=== PATIENT | female | born 1975 | race Caucasian/White ===

== ENCOUNTER 2018-03-06 11:03 | Day surgery (SDC) | payer OTHER ==
[2018-03-05 12:59] VITALS: BMI 23.9
[2018-03-06] MEDS ORDERED: PROPOFOL 20 ML ONE (13:47)
[2018-03-06] MEDS ORDERED: SUCCINYLCHOLINE CHLORIDE 200 MG/10 ML VIAL ONE (13:47)
[2018-03-06] MEDS ORDERED: MIDAZOLAM HCL 2 MG/2 ML SINGLE DOSE VIAL ONE (13:48)
[2018-03-06] MEDS ORDERED: DEXAMETHASONE SOD PHOSPHATE 4 MG/1 ML VIAL ONE (13:52)
[2018-03-06] MEDS ORDERED: LIDOCAINE HCL/PF 2% SDV 5ML VIAL ONE (13:52)
--- NOTE | 2018-03-06 14:49 | OP ---
Operative Note - Note: Operative Date: 03/06/18 Pre-Operative Diagnosis: rt. renal stone, rt. renal colick Operation: cysto, rt. retro rt. ureteroscopy rt. laser lithotripsy rt. jj stent Post-Operative Diagnosis: Same as Pre-op Anesthesia: General Specimens Removed: gravel and urine Estimated Blood Loss (mls): 0 Drains & Tubes with Location: 22cm 6f rt. jj stent Drains, Volume Out (mls): 0 Blood Volume Replaced (mls): 0 Fluid Volume Replaced (mls): 0 Operative Report Dictated: Yes
[2018-03-06] MEDS ORDERED: oxyCODONE HCL 5 MG TABLET PO PRN (15:51)
[2018-03-06] MEDS ORDERED: oxyCODONE HCL 5 MG TABLET ONE (17:24)
[2018-03-06] MEDS: oxyCODONE HCL 5 MG TABLET PO PRN (17:32)
[2018-03-06] MEDS ORDERED: ONDANSETRON 4 MG/2 ML VIAL ONE (18:27)
[2018-03-06] MEDS ORDERED: ONDANSETRON 4 MG/2 ML VIAL IVPUSH ONE (18:36)
[2018-03-06] MEDS: ACETAMINOPHEN 325 MG TABLET (FP) PO PRN (20:38)
[2018-03-06] MEDS: ONDANSETRON 4 MG/2 ML VIAL IVPUSH PRN (20:38)
[2018-03-07] MEDS: morphine SULFATE 4 MG/ML VIAL IVPUSH PRN ×3 (00:05→11:41)
[2018-03-07] MEDS: LACTATED RINGERS SOLUTION 1,000 ML IV SCH ×3 (00:13→22:41)
[2018-03-07] MEDS: ONDANSETRON 4 MG/2 ML VIAL IVPUSH PRN (02:17)
--- NOTE | 2018-03-07 06:53 | HP ---
DATE OF ADMISSION: 03/06/2018 HISTORY OF PRESENT ILLNESS: Patient is a 43-year-old female with history of right renal colic and right flank pain. Patient has also had long history of interstitial cystitis. She has been on Elmiron for several months. She constantly complains of pelvic pain, frequency, urgency, dysuria, and dyspareunia. A CT scan of her abdomen revealed a 7-mm right renal pelvic stone. She has undergone breast reduction surgery, right inguinal hernia repair, a laparotomy and a left inguinal hernia repair. The patient is . ALLERGIES: She denies any allergies. SOCIAL HISTORY: She denies any ethanolism, or tobacco. IMAGING: As stated earlier her CT scan results revealed a non-obstructing right 7-mm renal pelvic pain. There were numerous pelvic calcifications likely phleboliths. Non-obstructing distal ureteral calculi cannot be excluded. There was a large irregular uterus likely secondary to fibroids, and body lower segment appears particularly large. There is a left adnexal low-density cyst measuring 2.19 cm PLAN: The patient is admitted to undergo a cystoscopy, right ureteroscopy, right laser lithotripsy and placement of a right JJ stent. This was explained in detail to patient and she agrees. Janice [id number]
[2018-03-07] MEDS ORDERED: morphine SULFATE 4 MG/ML VIAL IVPUSH PRN (12:17)
[2018-03-07] MEDS ORDERED: ONDANSETRON 4 MG/2 ML VIAL IVPUSH PRN (12:17)
[2018-03-07] MEDS: oxyCODONE HCL 5 MG TABLET PO PRN (22:46)
[2018-03-07] MEDS: ACETAMINOPHEN 325 MG TABLET (FP) PO PRN (22:47)
[2018-03-08] MEDS: oxyCODONE HCL 5 MG TABLET PO PRN (06:55)
--- NOTE | 2018-03-08 12:45 | PN ---
Progress Note (short form) - Note Progress Note: UROLOGY NOTE. PT. IS S/P RULL WITH JJ STENT, AFEBRILE, NO CVA-T, ABD.-SOFT,N/ TURINE-CLEAR. PLAN -RENAL/PELVIC SONO IN AM.
[2018-03-08 13:24] VITALS: BP 119/71; PULSE 75; TEMP 98.7
--- NOTE | 2018-03-11 10:39 | OP ---
DATE OF OPERATION: 03/06/2018 SURGEON: Pool Martinez MD PREOPERATIVE DIAGNOSIS: Right renal stone, right renal colic, right hydronephrosis. POSTOPERATIVE DIAGNOSIS: Right renal stone, right renal colic, right hydronephrosis. OPERATIVE PROCEDURE: Cystourethroscopy, right retrograde pyelogram, right ureteroscopy, right laser lithotripsy, placement of a right JJ stent. ANESTHESIA: General. DESCRIPTION OF PROCEDURE: Under above stated anesthesia, patient was prepped and draped in the usual sterile manner. He was placed in the dorsal lithotomy position. Cystoscopy revealed a normal bladder, no lesions were noted, no calculi were seen, and ureteral orifices were within normal limits. Efflux of clear urine was noted from the left, none was seen from the right. A right retrograde pyelogram was performed and this revealed a filling defect in the right mid ureter. There was proximal hydroureteronephrosis. A Glidewire was passed up the right renal unit. A semi-rigid ureteroscope was then inserted. Ureteroscopy revealed a normal lower ureter. A stone was seen impacting the entire lumen of the right mid ureter. Using a Holmium laser, the stone was lazed into multiple fragments. A continuation of the ureteroscopy revealed no other stones. Therefore, the ureteroscope was removed. A 22-cm 6-Georgian JJ stent was left in place. X-rays revealed good position of the stent. The patient tolerated the procedure well. She returned to the recovery room in good condition. Janice [id number]
--- NOTE | 2018-03-12 06:04 | OP ---
DATE OF OPERATION: 03/06/2018 SURGEON: Junior Cates MD PREOPERATIVE DIAGNOSIS: Right renal colic, right renal stone. OPERATIVE PROCEDURE: Cystourethroscopy, right retrograde pyelogram, right ureteroscopy, right laser lithotripsy, placement of a right JJ stent. ANESTHESIA: General. DESCRIPTION OF PROCEDURE: Under above stated anesthesia, patient was prepped and draped in the usual sterile manner. She was placed in the dorsal lithotomy position. Cystoscopy revealed a normal bladder, ureteral orifices were within normal limits. Efflux of clear urine was noted from the left, none was seen from the right. A Flexi-Tip catheter was placed in the right orifice, and contrast was injected. This revealed a filling defect in the right lower ureter. Delayed films revealed hold-up of dye at that level. There was proximal hydroureteronephrosis. A Glidewire was passed up the right renal unit. A ureteroscope was then passed. A stone was visualized in the right lower ureter. This was lazed into multiple fragments. A continuation of the ureteroscopy revealed no other stones. Therefore, the ureteroscope was removed. A JJ stent was left in place. X-rays confirmed good position of the stent. The patient tolerated the procedure well. She returned to the recovery room in good condition. JUNIOR CATES M.D. [id number]
== END 2018-03-08 14:40 | disposition home or self-care (01) ==
LOC: JASU-SURG 11:03 → J7W 20:18 → JASU-SURG 03-08 14:40
PROVIDERS: ATTEND Urology
PROC: 0TF38ZZ Fragmentation in Right Kidney Pelvis, Via Natural or Artificial Opening Endoscopic (ICD-10-PCS; principal; 2018-03-06 12:00)
PROC: 0T768DZ Dilation of Right Ureter with Intraluminal Device, Via Natural or Artificial Opening Endoscopic (ICD-10-PCS; 2018-03-06 12:00)
DX: N20.0 Calculus of kidney (principal); N13.30 Unspecified hydronephrosis
CPT/HCPCS: 76000-TC-FY; 76775-TC; 76856-TC; 84703; 87086; 94760

== ENCOUNTER 2019-02-22 17:35 | Emergency (ER) | payer OTHER ==
[2019-02-22 17:42] VITALS: BP 120/81; PULSE 79; TEMP 98; BMI 25.7
--- NOTE | 2019-02-22 17:42 | PDOC ---
Rapid Medical Evaluation Time Seen by Provider: 02/22/19 17:40 Medical Evaluation: Allergies Allergy/AdvReac Type Severity Reaction Status Date / Time No Known Allergies Allergy Verified 03/06/18 11:53 02/22/19 17:40 CC: Left facial droop x2 days PE: no movement of left forehead. Left facial droop noted. Orders: nothing Patient will proceed to ER for further evaluation. Discharge Disposition - Diagnosis Martin palsy - Referrals Referrals: Bryn Aiken [Primary Care Provider] - - Patient Instructions - Post Discharge Activity
--- NOTE | 2019-02-22 18:41 | PDOC ---
History of Present Illness - General Chief Complaint: Weakness Stated Complaint: FACE TWISTING Time Seen by Provider: 02/22/19 17:40 - History of Present Illness Initial Comments: 02/22/19 18:38 44-year-old female without comorbidities presents for evaluation of left-sided facial numbness and drooping x1 day. Past History - Past Medical History Allergies/Adverse Reactions: Allergies Allergy/AdvReac Type Severity Reaction Status Date / Time No Known Allergies Allergy Verified 02/22/19 17:42 Home Medications: Ambulatory Orders Ascorbic Acid [Vitamin C] 500 mg PO DAILY 03/05/18 Vitamin E 400 unit PO DAILY 03/05/18 Prednisone 40 mg PO BID 7 Days #56 tablet 02/22/19 Valacyclovir HCl [Valtrex -] 1,000 mg PO TID 7 Days #21 tablet 02/22/19 Anemia: No Asthma: No Cancer: No Cardiac Disorders: No CVA: No COPD: No CHF: No Dementia: No Diabetes: No GI Disorders: No Disorders: No HTN: No Hypercholesterolemia: No Kidney Stones: Yes Liver Disease: No Seizures: No Thyroid Disease: No - Surgical History Abdominal Surgery: Yes (inguinal hernia repair) - Reproductive History (#): 3 Para: 2 - Immunization History Immunization Up to Date: Yes - Psycho Social/Smoking Cessation Hx Smoking History: Never smoked Have you smoked in the past 12 months: No Hx Alcohol Use: Yes (socially) Drug/Substance Use Hx: No Substance Use Type: Alcohol Hx Substance Use Treatment: No Review of Systems - Review of Systems HEENTM: Yes: See HPI *Physical Exam - Vital Signs Last Vital Signs Temp Pulse Resp BP Pulse Ox 98 F 79 18 120/81 99 02/22/19 17:39 02/22/19 17:39 02/22/19 17:39 02/22/19 17:39 02/22/19 17:39 - Physical Exam 02/22/19 18:39 GENERAL: The patient is awake, alert, and fully oriented, in no acute distress. HEAD: Normal with no signs of trauma. EYES: sclera anicteric, conjunctiva clear. ENT: Ears normal tympanic membranes normal oropharynx clear uvula midline NECK: Normal range of motion LUNGS: Breath sounds equal, clear to auscultation bilaterally. No wheezes, and no crackles. HEART: S1 and S2 without murmur, rub or gallop. ABDOMEN: Soft, nontender, normoactive bowel sounds. No guarding, no rebound. No masses. EXTREMITIES: Normal range of motion, no edema. No clubbing or cyanosis. No cords, erythema, or tenderness. NEUROLOGICAL: Normal speech normal gait, 3 out of 5 strength left upper eyelid unable to raise left eyebrow no asymmetry upon smiling PSYCH: Normal mood, normal affect. SKIN: Warm, Dry, normal turgor, no rashes or lesions noted. Medical Decision Making - Medical Decision Making 02/22/19 18:40 Patient evaluated with ER attending will treat for Martin's palsy. Discharge - Discharge Information Problems reviewed: Yes Clinical Impression/Diagnosis: Martin palsy Condition: Stable Disposition: HOME - Admission No - Additional Discharge Information Prescriptions: Prednisone 40 mg PO BID 7 Days #56 tablet Valacyclovir HCl [Valtrex -] 1,000 mg PO TID 7 Days #21 tablet - Follow up/Referral Referrals: Bryn Aiken [Primary Care Provider] - - Patient Discharge Instructions Patient Printed Discharge Instructions: DI for Martin's Palsy, Martin's Palsy Additional Instructions: Please take the antiviral and steroids as directed. Follow-up with your primary care physician in 2 to 3 days without fail for further evaluation and treatment options. Return to the emergency room for worsening symptoms. - Post Discharge Activity
== END 2019-02-22 19:11 | disposition home or self-care (01) ==
LOC: JERFT 17:35
DX: G51.0 Bell's palsy (principal); Z87.442 Personal history of urinary calculi
CPT/HCPCS: 99281-25